=== PATIENT | male | born 1990 | race Caucasian/White ===

== ENCOUNTER 2023-08-13 21:46 | Emergency (ER) | payer MEDICARE, MEDICAID, SELFPAY ==
[2023-08-13 21:46] VITALS: BP 160/93; PULSE 96; RESP 16; TEMP 36.8; O2SAT 98; BMI 36.1
[2023-08-13 21:50] VITALS: BP 160/93; PULSE 96; RESP 16; TEMP 36.8; O2SAT 98
[2023-08-13 22:13] VITALS: BP 144/100; PULSE 95; RESP 20; O2SAT 97
[2023-08-13] MEDS: 0.9% Normal Saline (1000mL) 1,000 ML 1000 ML IV (22:31)
--- NOTE | 2023-08-13 22:35 | RAD_ITS ---
EXAM: XR CHEST, 2 VIEWS CLINICAL INDICATION: Cough and wheezing TECHNIQUE: Frontal and lateral views of the chest. COMPARISON: No relevant prior studies available. FINDINGS: LUNGS AND PLEURAL SPACES: No significant abnormality. No consolidation or edema. No pneumothorax. No effusion. HEART: No significant abnormality. Cardiac silhouette not enlarged. MEDIASTINUM: Central airways and mediastinal contour are unremarkable. BONES/JOINTS: No significant abnormality. No acute fracture. SOFT TISSUES: No significant abnormality. RAD/Chest PA and Lateral IMPRESSION: No radiographic evidence of acute cardiopulmonary disease. Electronically Signed: Darian Gomez DO at 23:01 EDT ,
--- NOTE | 2023-08-13 23:03 | EDS_ITS ---
HPI History of Present Illness Chief Complaint: Shortness of Breath Detail of Chief Complaint: Patient presents because of shortness of breath, mild nasal congestion and Informant: patient Onset/Context/Timing Onset: Today Context: sudden Timing: Continuous Quality: Positive for Dyspnea on exertion and Wheezing; Negative for Orthopnea or PND Current Severity: Mild Maximum Severity: Moderate Worsened by: Exertion Relieved by: Nothing Associated Symptoms cough and rhinorrhea; Negative for post nasal drip, ear pain, fever, sore throat, subjective, chills or sweats Chest Pain: Positive for None Narrative Narrative: Patient is a 32-year-old male who is a smoker. He has environmental allergies. He denies history of asthma or COPD. His cough is nonproductive. He denies fever or chills. He denies headache, visual, ocular auditory symptoms. He denies ear pain. He denies GI symptoms. He does endorse some mild myalgias. He states he does not feel well. He has had no ill contacts to his knowledge. He denies leg pain, swelling or discoloration. PE Risk Factors: Negative for Cancer, OCP + Smoking + > 35, Prior DVT or PE, Re cent immobilization, Recent surgery or Recent travel Prior similar symptoms: Yes Recent Illness/Hospitalization: No PFSH PFSH Medical History no medical history Home Medications ?Medication ?Instructions ?Recorded ?Last Taken ?Type cetirizine 10 mg tablet (24Hour 10 mg PO DAILY PRN allergy symptoms 08/13/23 Unknown History Allergy) Allergy/AdvReac Type Severity Reaction Status Date / Time No Known Allergies Allergy Verified 08/13/23 22:11 Family History Father Hypertension Family History no significant family his Surgical History no surgical history Social History household members: none current occupational status: employed Smoking Status: Current every day smoker tobacco type: cigarettes ROS ROS ED Constitutional Constitutional ED: Denies chills, fever(s), sweats or weight loss Eyes Eyes: Denies blurry vision, change in vision or diplopia ENT ENT ED: Reports rhinorrhea; Denies ear pain or sore throat Cardiovascular Cardiovascular: Denies chest pain, orthopnea, palpitations or paroxysmal nocturnal dyspnea Respiratory/Chest Respiratory/Chest: Reports cough, dyspnea and dyspnea on exertion; Denies orthopnea, paroxysmal nocturnal dyspnea or sputum Gastrointestinal Gastrointestinal: Denies abdominal pain, nausea or vomiting Genitourinary Genitourinary ED: Denies dysuria, hematuria or urinary frequency Musculoskeletal Musculoskeletal: Reports myalgias; Denies arthralgias, back pain or neck pain Integumentary Denies abscess, Abrasions or rash Neurologic Neurologic: Denies headache(s), paresthesias or weakness Psychiatric Psychiatric: Denies anxiety or depression Endocrine Endocrinology: Denies cold intolerance or heat intolerance Hematologic/Lymphatic Hematologic/Lymphatic: Denies easy bleeding or easy bruising EXAM Physical Exam Const Vital Signs: 08/13/23 21:46 08/13/23 21:50 08/13/23 22:07 Temperature 98.2 F 98.2 F Temperature Source Oral Oral Pulse Rate 96 96 Respiratory Rate 16 16 Respiratory Effort Normal Short of Breath Respiratory Depth Normal Respiratory Pattern Normal Blood Pressure 160/93 H 160/93 H Blood Pressure Mean 115 115 Pulse Ox 98 98 Oxygen Delivery Method 08/13/23 22:13 Temperature Temperature Source Pulse Rate 95 Respiratory Rate 20 H Respiratory Effort Respiratory Depth Respiratory Pattern Blood Pressure 144/100 H Blood Pressure Mean 114 Pulse Ox 97 Oxygen Delivery Method Room Air Positive well nourished and well developed General Appearance ED: well developed and NAD; Negative for pallor HEENT Reports moist mucous membranes HEENT Narrative: Ears normal. Nares patent. TMs normal. atraumatic Eyes PERRL and EOMs intact bilaterally General Eye ED: Negative for pale conjunctiva or scleral icterus Neck no lymphadenopathy, supple, no meningeal signs and no JVD Resp normal respiratory effort and No clear to auscultation bilaterally Auscultation: wheezes expiratory wheezes, scattered wheezes and throughout (Worse on the left compared to the right) Cardio regular rate, regular rhythm, S1 normal heart sound, S2 normal heart sound and no murmurs GI non-tender, non-distended and no masses Extremity normal to inspection General Extremety ED: Negative for edema or tenderness General Extremity: Negative for edema Neuro oriented x3 and CN's II-XII intact bilaterally Sensorium / Orientation: alert Psych mental status grossly normal Skin no wounds and skin turgor normal General Skin Exam: Negative for jaundice or pallor Lesions: no lesions Rashes: no rashes MDM MDM MDM Narrative Medical decision making narrative: [place] diagnoses viral upper restaurant infection versus pneumonia. Since he is wheezing we will have respiratory instructed how to use an inhaler. Chest x-ray was obtained to assess for pneumonia. Radiography Chest X-Ray - ED: 2 View, Read by ED Physician (Neela reviewed interpreted by me at 2240), Normal, Heart, Lungs, Mediastinum, Bony Structures and No Acute Disease Diagnostic Testing: Clinical Impression(s) from Imaging Studies Chest X-Ray 08/13/23 22:35 IMPRESSION: No radiographic evidence of acute cardiopulmonary disease. Electronically Signed: Darian Gomez DO at 23:01 EDT , Treatment and Re-Evaluation :: Patient was discharged with inhaler. Instructions were 2 puffs every 2-4 hours while awake for the next 3 to 5 days. He was informed that he has a viral illness that he may be ill for another 7 to 10 days. He may have a cough for 2 to 4 weeks since he is a smoker. His blood pressure is elevated. He does not have a history of elevated blood pressure. He was structured to contact his doctor for blood pressure check in 1 to 2 weeks. Discharge Plan Triage Chief Complaint: Shortness of Breath ED Provider: Umberto Lombardo Dx/Rx/DC Orders Clinical Impression: Acute upper respiratory infection, Acute bronchospasm, Elevated blood pressure reading without diagnosis of hypertension Instructions: ED Bronchitis with Wheezing (Adult), ED Hypertension, To Be Confirmed Prescriptions: No Action cetirizine [24Hour Allergy] 10 mg tablet 10 mg PO DAILY PRN (Reason: allergy symptoms) Primary Care Provider: NOT,DEFINED Referrals: Suzy Garcia [Non-Staff] - 10-14 Days if not better NOT,DEFINED [Primary Care Provider] - Activity Restrictions/Additional Instructions: 1. You may have a cough for 2 to 4 weeks because you are a smoker. 2. 2 puffs of inhaler every 2-4 hours while awake for the next 3 to 5 days and every 4-6 hours as needed Print Language: Ug[place]an Disposition Disposition: Home, Self Care
[2023-08-13] MEDS: Albuterol Sulfate 8 gm Inhaler (60 puffs) 4 PUFF INHALATION (23:35)
[2023-08-13 23:36] VITALS: BP 135/95; PULSE 95; RESP 20; TEMP 36.6; O2SAT 97
== END 2023-08-13 23:37 | disposition home or self-care (01) ==
LOC: ED 23:17
PROVIDERS: Emergency Provider Emergency Medicine; Visit Provider Emergency Medicine
DX: J06.9 Acute upper respiratory infection, unspecified (principal); J98.01 Acute bronchospasm; F17.210 Nicotine dependence, cigarettes, uncomplicated; R03.0 Elevated blood-pressure reading, without diagnosis of hypertension; R06.02 Shortness of breath
CPT/HCPCS: 71046; 96360; 99283; J7030

== ENCOUNTER 2024-03-14 17:14 | Emergency (ER) | payer MEDICARE, MEDICAID, SELFPAY ==
[2024-03-14 17:15] VITALS: BP 141/98; PULSE 111; RESP 18; TEMP 37.3; O2SAT 99; BMI 37.9
--- NOTE | 2024-03-14 17:26 | EX.ED.DYSGE1 ---
HPI <SHERYL Lovell - Last Filed: 03/14/24 19:33> History of Present Illness Chief Complaint: General Illness Narrative Narrative: 34-year-old male with past medical history of asthma, tobacco use presents with 2 days of subjective fever, chills, sweats, and productive cough. He denies chest pain or shortness of breath. He uses his albuterol Hailer as needed. He smokes about a pack a day. He denies GI symptoms. PFSH <SHERYL Lovell - Last Filed: 03/14/24 19:33> PFSH Medical History no medical history Home Medications ?Medication ?Instructions ?Recorded ?Last Taken ?Type cetirizine 10 mg tablet (24Hour 10 mg PO DAILY PRN allergy symptoms 08/13/23 Unknown History Allergy) Allergy/AdvReac Type Severity Reaction Status Date / Time peanut Allergy Anaphylaxis Verified 03/14/24 17:16 Family History Father Hypertension Family History no significant family his Surgical History no surgical history Social History household members: none current occupational status: employed Smoking Status: Current every day smoker tobacco type: cigarettes ROS <SHERYL Lovell - Last Filed: 03/14/24 19:33> ROS ED ROS Narrative Constitutional: Positive for fever, chills, malaise. CVS: Negative for chest pain, syncope. Respiratory: Positive for cough. Negative for shortness of breath. GI: Negative for abdominal pain, nausea, vomiting, diarrhea. EXAM <SHERYL Lovell Last Filed: 03/14/24 19:33> Physical Exam Narrative Exam Narrative: CONST: Patient sitting in no acute distress. EYES: Normal inspection. ENT: Normal inspection, moist mucous membranes. NECK: Normal inspection. RESP: No respiratory distress, CTAB. CVS: Slightly tachycardic with regular rhythm, no murmur, no gallop. SKIN: Color normal, no rash, warm, dry, intact. EXTREMITIES: Normal appearance, no pedal edema. NEURO: Alert and answering questions appropriately. PSYCH: Normal affect. Const Vital Signs: 03/14/24 17:15 03/14/24 17:31 Temperature 99.2 F H Temperature Source Oral Pulse Rate 111 H Respiratory Rate 18 Respiratory Effort Normal Respiratory Pattern Normal Blood Pressure 141/98 H Blood Pressure Mean 112 Pulse Ox 99 Oxygen Delivery Method Room Air <Dr. Bari Velazquez DO - Last Filed: 03/14/24 23:06> Physical Exam Const Vital Signs: 03/14/24 17:15 03/14/24 17:31 Temperature 99.2 F H Temperature Source Oral Pulse Rate 111 H Respiratory Rate 18 Respiratory Effort Normal Respiratory Pattern Normal Blood Pressure 141/98 H Blood Pressure Mean 112 Pulse Ox 99 Oxygen Delivery Method Room Air MDM <SHERYL Lovell - Last Filed: 03/14/24 19:33> [facility] Narrative Medical decision making narrative: Patient has 2 days of fever, chills, productive cough and bodyaches. He appears ill but nontoxic. He has a low-grade temperature and is mildly tachycardic at 111 but otherwise stable. Overall his exam is benign. There are no clinical signs of strep pharyngitis, meningitis, or pneumonia. His viral swab is positive for influenza A and he was treated with ibuprofen. I discussed symptomatic treatment at home and he was discharged in stable condition. <Dr. Bari Velazquez, - Last Filed: 03/14/24 23:06> [facility] Narrative Medical decision making narrative: Patient has 2 days of fever, chills, productive cough and bodyaches. He appears ill but nontoxic. He has a low-grade temperature and is mildly tachycardic at 111 but otherwise stable. Overall his exam is benign. There are no clinical signs of strep pharyngitis, meningitis, or pneumonia. His viral swab is positive for influenza A and he was treated with ibuprofen. I discussed symptomatic treatment at home and he was discharged in stable condition. ED attending note: I evaluated the patient in conjunction with the [facility]. I agree with his/her statements and above findings. I have personally performed a face to face assessment of the patient and have reviewed the [facility] Note. I performed a substantive portion of the visit including all aspects of the following. I personally saw the patient performed chart review, physical exam, reviewed labs, imaging (if obtained), and formulated a treatment and management plan. This note was generated with [employer] software. It may contain incorrect words, spelling, and punctuation that were not noted in review of the chart prior to signing. Discharge Plan Triage Chief Complaint: General Illness ED Midlevel Provider: Valerie Gonzales ED Provider: Bari Velazquez Dx/Rx/DC Orders Clinical Impression: Influenza A Instructions: ED Influenza (Adult) Prescriptions: No Action cetirizine [24Hour Allergy] 10 mg tablet 10 mg PO DAILY PRN (Reason: allergy symptoms) Stand Alone Forms: ED Work / School Excuse Primary Care Provider: Care Physician,No Primary Referrals: Care Physician,No Primary [Primary Care Provider] - Activity Restrictions/Additional Instructions: You have influenza A. This is a virus that can cause fever chills and upper respiratory symptoms as well as vomiting or diarrhea. It can last 7 to 14 days. Rest, drink plenty fluids, and take Tylenol or Motrin as needed. You can take [id number] decongestants or cough syrup. Print Language: Iranian Disposition Disposition: Home, Self Care Discharge Date/Time: 03/14/24 18:42
[2024-03-14] MEDS: Ibuprofen 600 MG Tablet PO (17:29)
== END 2024-03-14 18:42 | disposition home or self-care (01) ==
PROVIDERS: Emergency Provider Emergency Medicine; Visit Provider Emergency Medicine
DX: J10.1 Influenza due to other identified influenza virus with other respiratory manifestations (principal); F17.210 Nicotine dependence, cigarettes, uncomplicated
CPT/HCPCS: 87631; 99282